=== PATIENT | male | born 1985 | race Caucasian/White ===

== ENCOUNTER 2020-10-17 08:35 | Emergency (ER) | payer BC, SELFPAY ==
[2020-10-17 08:46] VITALS: BP 147/91; PULSE 74; RESP 16; TEMP 37.3; O2SAT 98
--- NOTE | 2020-10-17 08:55 | ED.URI ---
HPI - URI/Sore Throat General Chief Complaint: Upper Respiratory Infection Stated Complaint: sore throat ear pain lung issues Time Seen by Provider: 10/17/20 08:56 Source: patient Mode of arrival: ambulatory History of Present Illness HPI Narrative: PATIENT PRESENTS WITH LEFT EAR PAIN AND SORE THROAT. UNSURE OF HOW LONG HE HAS HAD THESE SYMPTOMS. NO COUGH NO FATIGUE AND NO FEVER. NO CONCERN FOR COVID NO COVID EXPOSURE. NO PROBLEMS SWALLOWING AND NO DROOLING. NO DIZZINESS AND NO NAUSEA. PATIENT HAS NOT TAKEN ANYTHING OVER THE COUNTER FOR HIS SYMPTOMS. Related Data Allergies Allergy/AdvReac Type Severity Reaction Status Date / Time No Known Allergies Allergy Unknown Verified 10/17/20 08:54 Review of Systems Review of Systems: Narrative: CONSTITUTIONAL: Denies chills, or sweats. Reports fever and generalized body aches EYES: Denies visual changes, redness, or discharge. ENT: Denies otalgia. Reports nasal congestion runny nose and sore throat CARDIOVASCULAR: Denies chest pain, palpitations, or edema. RESPIRATORY: Denies dyspnea. Reports occasional cough GASTROINTESTINAL: Denies abdominal pain, nausea, vomiting, or diarrhea. GENITOURINARY: Denies dysuria or hematuria. SKIN: Denies rash or itching. MUSCULOSKELETAL: Denies back pain, joint pain, or myalgia. Reports generalized body aches NEUROLOGIC: Denies headache, numbness, or weakness. PSYCHIATRIC: Denies anxiety or depression. PMFSH Comments At time of signature, agree with nursing past medical, surgical, social and family history. There is no relevant family history pertinent to the presenting complaint Exam Narrative: Exam Narrative: The patient is a well-developed, well-nourished in no acute distress. SKIN: Skin is warm and dry without erythema, swelling or exudate. There is good turgor. No tenting. HEAD: Atraumatic. Normocephalic. No temporal or scalp tenderness. EYES: Moist and bright. Sclera and conjunctivae normal. No discharge. PERRLA. Extraocular motions intact. Gross visual acuity intact. EARS: Pinna is normal shape and contour. Clear external auditory canals.RIGHT TM pearly iverson with good cone of light, no erythema or suppuration LEFT TM BULGING WITH MOGERATE ERYTHEMA TO CANAL. Bilateral cerumen noted no gross hearing deficit. NOSE: pink, moist mucosa with good air movement. Clear rhinorrhea without nasal flaring. Septum midline. Mouth: moist mucous membranes. THROAT; mild erythema noted to posterior oropharynx with moderate postnasal drainage. Without exudate or ulceration.. Uvula midline. Normal movement of soft palate. NO TRISMUS NO DROOLING NECK: Supple and nontender with full range of motion without discomfort. No meningeal signs. LUNGS: Equal and bilateral breath sounds without wheezes, rales or rhonchi. CHEST: The chest wall is without retractions or use of accessory muscles. HEART: Has a regular rate and rhythm without murmur, gallops, click or rub. ABDOMEN: Soft, nontender with positive active bowel sounds. No rebound tenderness. EXTREMITIES: Without cyanosis, clubbing or edema. Equal 2+ distal pulses and 2 second capillary refill noted. NEUROLOGIC: alert, active, . The patient moves all extremities with normal muscle strength. Normal muscle tone is noted. Normal coordination is noted. NO focal neurological findings noted. Course Vital Signs Vital signs: Vital Signs Temperature 37.3 C 10/17/20 08:46 Pulse Rate 74 10/17/20 08:46 Respiratory Rate 16 10/17/20 08:46 Blood Pressure 147/91 H 10/17/20 08:46 Pulse Oximetry 98 10/17/20 08:46 Temperature 37.3 C 10/17/20 08:46 Pulse Rate 74 10/17/20 08:46 Respiratory Rate 16 10/17/20 08:46 Blood Pressure 147/91 H 10/17/20 08:46 Pulse Oximetry 98 10/17/20 08:46 Please LUZMARIA schedule a followup visit with your personal physician for further evaluation and treatment. Including recheck and discussion of your blood pressure. If your symptoms persist, change or worsen significantly
== END 2020-10-17 09:19 | disposition home or self-care (01) ==
PROVIDERS: Emergency Provider Nurse Practitioner Family
DX: J02.9 Acute pharyngitis, unspecified (principal); H66.92 Otitis media, unspecified, left ear
CPT/HCPCS: 87081; 87880; 99203; G0463